=== PATIENT | male | born 1945 | race Caucasian/White ===

== ENCOUNTER 2022-03-19 16:01 | Emergency (ER) | payer MEDICARE, SELFPAY ==
--- NOTE | ~2022-03-19 | XR_ITS ---
EXAM: XR elbow LT min 3V DATE: 03/19/2022 16:54 HISTORY: FELL 03/10/22. HIT ELBOW ON BIRDCAGE. POST. SWELLING . COMPARISON: None available. FINDINGS: Mildly decreased mineralization. No fracture or dislocation. No lytic or blastic lesion. J oint spaces are maintained. No erosion or periosteal change. Posterior soft tissue swelling. IMPRESSION: No acute osseous finding in the left elbow. Reviewed, dictated and finalized at location K.
[2022-03-19 16:15] VITALS: BP 133/53; PULSE 56; RESP 20; TEMP 37; O2SAT 97
--- NOTE | 2022-03-19 16:39 | ED.UPPEXIN ---
HPI - Extremity Injury (Upper) General Chief Complaint: Extremity Injury, Upper Stated Complaint: lac and swelling left elbow Time Seen by Provider: 03/19/22 16:55 Source: patient and RN notes reviewed Mode of arrival: ambulatory Limitations: no limitations History of Present Illness HPI narrative: 76-year-old male history of diabetes presents with concern for left elbow injury. Reports on Saturday he fell hitting his elbow against a metal birdcage. His for reports a skin tear that she has been cleaning and bandaging. Reports today she noted purulent drainage and swelling to the elbow. Patient denies decree sensation, strength, range of motion distal to the elbow. MD complaint: injury to: left and elbow Related Data Home Medications Medication Instructions Recorded Confirmed Iron 45 mg PO DAILY 03/19/22 03/19/22 amlodipine 10 mg tablet 10 mg PO DAILY 03/19/22 03/19/22 labetalol 300 mg tablet 300 mg PO Q12H 03/19/22 03/19/22 memantine 10 mg tablet 10 mg PO QPM 03/19/22 03/19/22 metformin 500 mg tablet 500 mg PO DAILY 03/19/22 03/19/22 sertraline 100 mg tablet 100 mg PO DAILY 03/19/22 03/19/22 tamsulosin 0.4 mg capsule 0.4 mg PO DAILY 03/19/22 03/19/22 Allergies Allergy/AdvReac Type Severity Reaction Status Date / Time No Known Allergies Allergy Verified 03/19/22 16:28 Review of Systems Review of Systems: CONSTITUTIONAL: Denies malaise, chills, sweats, or fever. CARDIOVASCULAR: Denies chest pain, palpitations, or edema. RESPIRATORY: Denies cough or dyspnea. SKIN: Denies rash or itching, bruising, redness, swelling. Reports skin tear with purulent drainage to the left elbow MUSCULOSKELETAL: Reports left elbow pain NEUROLOGIC: Denies numbness, weakness All systems reviewed & are unremarkable except as noted in HPI and below ROS unobtainable: Yes unobtainable due to medical condition PMFSH Comments At time of signature, agree with nursing past medical, surgical, social and family history. There is no relevant family history pertinent to the presenting complaint Exam Narrative: GENERAL: Well-appearing, well-nourished, and in no acute distress. HEAD: Normocephalic, atraumatic. EYES: PERRLA, conjunctivae clear NECK: Supple. CHEST: Speaks in full sentences. No respiratory distress. HEART: Regular rate and rhythm. Normal and equal peripheral pulses. EXTREMITIES: Elbow has normal strength and sensation, grossly normal range of motion. Mild elbow edema with mild erythema, no ecchymosis. Normal sensation with sensitivity to light touch and pain. Mild elbow tenderness. No open wounds, no skin tenting, no devitalized tissue or atrophy, no trophic changes, no obvious deformity, alignment normal, nearby joints and structures intact. Distal pulses palpable and equal bilaterally, skin warm, dry, pink. Capillary refill less than 3 seconds. SKIN: Warm, dry, no rash. V-shaped wound that is well approximated with yellow drainage noted to the left elbow NEURO: Alert and oriented x3. PSYCH: Normal mood and affect Course Course Emergency Course: Patient is aware of diagnosis, understands and agrees to treatment plan. Anticipatory guidance given. Patient agrees to follow-up as directed and is aware of reasons to seek care at the emergency department. Portions of this record may have been created with voice recognition software Level of Care: Express Care Visit Vital Signs Vital signs: Vital Signs Temperature 98.6 F 03/19/22 16:15 Pulse Rate 56 L 03/19/22 16:15 Respiratory Rate 20 03/19/22 16:15 Blood Pressure 133/53 L 03/19/22 16:15 Pulse Oximetry 97 03/19/22 16:15 Oxygen Delivery Room Air 03/19/22 16:15 Temperature 98.6 F 03/19/22 16:15 Pulse Rate 56 L 03/19/22 16:15 Respiratory Rate 20 03/19/22 16:15 Blood Pressure 133/53 L 03/19/22 16:15 Pulse Oximetry 97 03/19/22 16:15 Oxygen Delivery Room Air 03/19/22 16:15 Reviewed. MDM - Extremity Injury (Upper) MDM Narrative Medical d
== END 2022-03-19 17:18 | disposition home or self-care (01) ==
PROVIDERS: Emergency Provider Nurse Practitioner
DX: S51.012A Laceration without foreign body of left elbow, initial encounter (principal); L08.9 Local infection of the skin and subcutaneous tissue, unspecified; W19.XXXA Unspecified fall, initial encounter; I10 Essential (primary) hypertension
CPT/HCPCS: 73080; 99213; G0463

== ENCOUNTER 2022-04-10 12:57 | Emergency (ER) | payer MEDICARE, SELFPAY ==
[2022-04-10 13:06] VITALS: BP 138/54; PULSE 66; RESP 20; TEMP 36.9; O2SAT 99
[2022-04-10 13:26] VITALS: BP 138/54; PULSE 66; RESP 20; TEMP 36.9; O2SAT 99
--- NOTE | 2022-04-10 13:49 | ED.UPPEXIN ---
HPI - Extremity Injury (Upper) General Chief Complaint: Extremity Injury, Upper Stated Complaint: left arm lacs Time Seen by Provider: 04/10/22 13:25 Source: patient, family, RN notes reviewed and old records reviewed Mode of arrival: wheelchair Limitations: dementia (patient has dementia) History of Present Illness HPI narrative: 76 year old male accompanied by with complaints of patient falling at home today when he took off walking across living room without using walker and hitting is left arm on stained glass fireplace screen with skin tear abrasions and small laceration to left forearm. Bleeding is controlled at this time, states that Tetanus shot is up to date. Patient has full mobility of his left arm with no complaints of any tingling or numbness, strong pulses to left arm. reports that patient did not hit his head when he fell. MD complaint: injury to: left and arm Onset (ago): minute(s) (within past 30-40 minutes prior to arrival) Place: home Treatments prior to arrival: bandage Related Data Home Medications Medication Instructions Recorded Confirmed Iron 45 mg PO DAILY 03/19/22 04/10/22 amlodipine 10 mg tablet 10 mg PO DAILY 03/19/22 04/10/22 labetalol 300 mg tablet 300 mg PO Q12H 03/19/22 04/10/22 memantine 10 mg tablet 10 mg PO QPM 03/19/22 04/10/22 metformin 500 mg tablet 500 mg PO DAILY 03/19/22 04/10/22 sertraline 100 mg tablet 100 mg PO DAILY 03/19/22 04/10/22 tamsulosin 0.4 mg capsule 0.4 mg PO DAILY 03/19/22 04/10/22 Allergies Allergy/AdvReac Type Severity Reaction Status Date / Time No Known Allergies Allergy Verified 04/10/22 13:15 Review of Systems Review of Systems: CONSTITUTIONAL: Denies fever, chills, or sweats. EYES: Denies visual changes, redness, or discharge. ENT: Denies rhinorrhea, congestion, sore throat, or otalgia. CARDIOVASCULAR: Denies chest pain, palpitations, or edema. RESPIRATORY: Denies cough or dyspnea. GASTROINTESTINAL: Denies abdominal pain, nausea, vomiting, or diarrhea. GENITOURINARY: Denies dysuria or hematuria. SKIN: Denies rash or itching.Positive for lacerations to his left forearm from fall MUSCULOSKELETAL: Denies back pain, joint pain, or myalgia, is suppose to use walker with ambulation gait is unsteady NEUROLOGIC: Denies headache, numbness, or weakness. PSYCHIATRIC: positive for anxiety or depression, dementia All systems reviewed & are unremarkable except as noted in HPI and below PMFSH Past Medical History Medical History (Updated 04/13/22 @ 08:06 by Kimberli Acosta NP) Dementia Diabetes Hypertension Social History Social History (Updated 04/13/22 @ 08:28 by Kimberli Acosta NP) Smoking status: Former smoker Additional smoking assessment comments: quit 15 years ago Alcohol intake: former Alcohol use details: social use Substance use type: does not use Living arrangements: with family Occupation/Education: retired Gender identity (if verbalized by the patient): Male Comments At time of signature agree with nursing documentation of past medical, surgical, social and family history. There is no relevant family history pertinent to presenting complaint. Exam Narrative: GENERAL: Well-appearing, well-nourished, and in no acute distress. HEAD: Normocephalic, atraumatic. EYES: PERRLA and EOMI. ENT: Nares clear, no rhinorrhea or epistaxis. Mucous membranes moist. TMs normal with good light reflex, throat pink with no lesions or exudates or tonsil swelling NECK: Supple. no lymphadenopathy CHEST: Clear to auscultation. No respiratory distress. SaO2 99% on room air HEART: Regular rate and rhythm. No murmur heard. Normal peripheral pulses. ABDOMEN: Soft, nontender, nondistended, normal active bowel sounds. EXTREMITIES: Normal range of motion. No edema. SKIN: Warm, dry, 4cm skin flap to proximal left forearm with tissues on end of wound fragile and 2.5cm linear type of laceration to lateral proximal forearm minimally subcutaneous N
== END 2022-04-10 14:35 | disposition home or self-care (01) ==
PROVIDERS: Emergency Provider Registered Nurse
DX: S51.812A Laceration without foreign body of left forearm, initial encounter (principal); W19.XXXA Unspecified fall, initial encounter; F03.90 Unspecified dementia, unspecified severity, without behavioral disturbance, psychotic disturbance, mood disturbance, and anxiety; E11.9 Type 2 diabetes mellitus without complications; I10 Essential (primary) hypertension; Z87.891 Personal history of nicotine dependence
CPT/HCPCS: 99213; G0463